=== PATIENT | male | born 1945 | race Caucasian/White ===

== ENCOUNTER → 2017-04-05 | Outpatient (CLI) | payer MEDICARE, OTHER | LOC: COL.RAD 13:03 | DX: M76.62 Achilles tendinitis, left leg (principal); S93.412A Sprain of calcaneofibular ligament of left ankle, initial encounter; R60.0 Localized edema; M77.52 Other enthesopathy of left foot and ankle ==

== ENCOUNTER 2017-05-04 06:38 | Emergency (ER) | payer MEDICARE, OTHER ==
[~2017-05-04] VITALS: Ht 175.3 cm; Wt 94.5 kg
[2017-05-04 06:41] VITALS: TEMP 98.8
[2017-05-04] MEDS ORDERED: NORCO 325 MG-7.1 TAB PO (06:44)
[2017-05-04] MEDS ORDERED: OXY IR5 MG PO (06:44)
[2017-05-04] MEDS ORDERED: TENORMIN 5050 MG/TAB PO (06:44)
[2017-05-04] MEDS ORDERED: ZYLOPRIM 300MG300 MG PO (06:44)
[2017-05-04] MEDS ORDERED: HYGROTON 2525 MG/TAB (06:45)
[2017-05-04] MEDS ORDERED: ZOCOR 40MG40 MG PO (06:45)
[2017-05-04 07:49] LABS: BASO # 0.1 (0.0-0.2); BASO % 0.4 % (0.0-2.0); EOS # 0.1 (0.0-0.7); EOS % 0.4 % (0-4.0); GRAN % 68.1 % (42.2-75.2); HEMATOCRIT 42.7 % (42.0-52.0); LYMPH # 3.1 (1.2-3.4); LYMPH % 23.3 % (20.0-51.0); MEAN CELL VOLUME 92 fl (80.0-100.0); MEAN CORPUSCULAR HEMOGLOBIN 32 pg (27.0-31.0); MEAN CORPUSCULAR HGB CONC 35 g/dl (33.0-37.0); MEAN PLATELET VOLUME 10.4 fl (7.4-10.4); MONO % 7.3 % (1.7-9.3); PLATELET COUNT 168 K/mm3 (130-400); RED BLOOD COUNT 4.66 M/mm3 (4.20-5.60); WHITE BLOOD COUNT 13.2 K/mm3 (4.8-10.8)
[2017-05-04 07:53] LABS: COLLECTION METHOD CLEAN CATCH
[2017-05-04 07:55] LABS: ADJUSTED CALCIUM 9.3 mg/dL (8.4-10.2); ALBUMIN 4.1 gm/dL (3.5-5.0); BILIRUBIN,TOTAL 0.9 mg/dL (0.0-1.0); CALCIUM 9.4 mg/dL (8.4-10.2); CREATININE, serum 0.92 mg/dL (0.66-1.25); MAGNESIUM 1.8 mg/dL (1.6-2.3); POTASSIUM 3.2 mmol/L (3.4-5.0)
[2017-05-04 08:01] LABS: MUCOUS Present /lpf; PH 5 (5-8); SQUAMOUS EPITHELIAL None Seen /hpf; URINE APPEARANCE Clear; URINE BACTERIA None Seen /hpf; URINE BILIRUBIN Negative (NEGATIVE); URINE BLOOD Negative (NEGATIVE); URINE COLOR Yellow; URINE GLUCOSE Negative (NEGATIVE); URINE KETONE Negative (NEGATIVE); URINE LEUKOCYTE ESTERASE Negative (NEGATIVE); URINE PROTEIN(semi-quant) Negative (NEGATIVE); URINE RBC 0-2 /hpf; URINE WBC 0-2 /hpf
[2017-05-04 08:02] LABS: C-REACTIVE PROTEIN 1.1 mg/dL (0.0-0.9)
[2017-05-04 09:01] LABS: INFLUENZA A NEGATIVE; INFLUENZA B NEGATIVE
[2017-05-04] MEDS ORDERED: LEVAQUIN 750MG750 M1 PO (10:43)
[2017-05-04 11:00] VITALS: BP 120/68; PULSE 78
== END 2017-05-04 11:20 | disposition home or self-care (01) ==
LOC: COL.ER 06:38
PROVIDERS: Emergency Medicine
DX: R53.81 Other malaise (principal); G89.18 Other acute postprocedural pain; R05 Cough; I10 Essential (primary) hypertension; Z98.890 Other specified postprocedural states
CPT/HCPCS: J1885; J3010; J7030

== ENCOUNTER 2018-12-25 07:34 | Emergency (ER) | payer MEDICARE, OTHER ==
[~2018-12-25] VITALS: Ht 175.3 cm; Wt 86.4 kg
[~2018-12-25 07:34] MED LIST: HYGROTON 2525 MG/TAB PO; LEVAQUIN 750MG750 M1 PO; NORCO 325 MG-7.1 TAB PO; OXY IR5 MG PO; TENORMIN 5050 MG/TAB PO; ZOCOR 40MG40 MG PO; ZYLOPRIM 300MG300 MG PO
[2018-12-25 07:40] VITALS: BP 137/67; TEMP 97.3
[2018-12-25] MEDS ORDERED: K-DUR20 MEQ PO (08:02)
[2018-12-25] MEDS ORDERED: SINEMET 25/101 UDTAB PO (08:05)
[2018-12-25] MEDS ORDERED: OMEGA-3 1000 MG1 CAP PO (08:23)
[2018-12-25] MEDS ORDERED: MULTIPLE VITAMI1 TA5 PO (08:24)
[2018-12-25] MEDS ORDERED: INDOCIN 25MG CA25 MG PO (08:25)
[2018-12-25 08:45] VITALS: PULSE 65
== END 2018-12-25 08:45 | disposition home or self-care (01) ==
LOC: COL.ER 07:34
DX: N50.89 Other specified disorders of the male genital organs (principal); Z87.891 Personal history of nicotine dependence; G20 Parkinson's disease

== ENCOUNTER → 2019-01-22 | Outpatient (CLI) | payer MEDICARE, OTHER ==
[~2019-01-22] MED LIST changes: +INDOCIN 25MG CA25 MG PO; +K-DUR20 MEQ PO; +MULTIPLE VITAMI1 TA5 PO; +OMEGA-3 1000 MG1 CAP PO; +SINEMET 25/101 UDTAB PO
== END ==
LOC: COL.RAD 01-11 12:30
DX: Z01.812 Encounter for preprocedural laboratory examination (principal); G20 Parkinson's disease; I10 Essential (primary) hypertension; G31.9 Degenerative disease of nervous system, unspecified; I67.82 Cerebral ischemia
CPT/HCPCS: A9585